=== PATIENT | male | born 1975 | race Caucasian/White ===

== ENCOUNTER 2016-06-18 15:25 | Emergency (ER) | payer BC ==
[~2016-06-18 15:25] MED LIST: ADVIL PO; ASAB PO; BYETTA10 SC; CARDCD240 PO; CARDIZEM LA360 MG PO; CAT1 PO; COREG12 PO; COREG25 PO; COREG6 PO; DEMA100 PO; DEMA20 PO; DIOVAN HCT320 MG/25 PO; GLUCOPHAGE1000 MG PO; HALF81 PO; JANTOVEN1 MG PO; JANTOVEN7.5 MG PO; KLONO1 PO; KLONO5 PO; KLOR-CON M2020 MEQ PO; LAN125 PO; PRILOSEC40 MG PO; PRIN20 PO; REST15 PO; RYTHMOL300 MG PO; SACU1TAB4 PO; SACU1TAB7 PO; SINGULAIR1 PO; SPIRO25 PO; SPIRO50 PO; VICODINTAB PO; XARELTO20 MG PO; Z5 PO; ZESTRIL10 MG PO; ZYRTEC ALLGY10 MG PO
[2016-06-18 16:19] LABS: BASOPHILS 0.3 %; BASOPHILS ABSOLUTE 0.02 10/3/uL (0.0-0.16); EOSINOPHILS 0.8 %; EOSINOPHILS ABSOLUTE 0.05 10/3/uL (0.0-0.53); HEMATOCRIT 36.7 % (40.0-51.0); HEMOGLOBIN 12.9 g/dL (13.6-17.8); IMMATURE GRANULOCYTES 0.3 %; IMMATURE GRANULOCYTES ABSOLUTE 0.02 10/3/uL (0.0-0.11); LYMPHOCYTES 22.2 %; LYMPHOCYTES ABSOLUTE 1.32 10/3/uL (0.67-4.30); MEAN CORPUS HGB CONC 35.1 g/dL (32.0-36.0); MEAN CORPUSCULAR HEMOGLOB 30.7 pg (26.0-34.0); MEAN CORPUSCULAR VOLUME 87.4 fL (80-100); MEAN PLATELET VOLUME 10.8 fL (9.2-13.0); MONOCYTES 14.3 %; MONOCYTES ABSOLUTE 0.85 10/3/uL (0.21-1.20); NEUTROPHILS 62.1 %; NEUTROPHILS ABSOLUTE 3.69 10/3/uL (2.02-8.40); PLATELET COUNT 166 10/3/uL (150-400); RBC DISTRIBUTION WIDTH 13.8 % (12.0-16.0)
[2016-06-18 16:22] LABS: MANUAL DIFF NO %
[2016-06-18 16:29] LABS: ASCORBIC ACID (UR NOT ORDER) NEG (NEG); BILIRUBIN, URINE NEGATIVE (NEG); ER URINALYSIS TAT 0 Hrs 14 Mins; KETONE, URINE NEGATIVE (NEG); LEUKOCYTE ESTERASE(NOT OR NEG (NEG); NITRITE (URINE) NEG (NEG); WBC (NOT ORDERED) (RFLEX) 7 (0-5)
[2016-06-18 16:35] LABS: A/G RATIO 0.8 (0.7-1.9); ALBUMIN 3.4 G/DL (3.5-5.0); ALKALINE PHOSPHATASE 138 U/L (45-117); BUN (BLOOD UREA NITROGEN) 9 MG/DL (6-23); CALCIUM, SERUM 8.2 MG/DL (8.5-10.4); CHLORIDE, SERUM 105 MMOL/L (96-112); CO2 (CARBON DIOXIDE) 24 MMOL/L (24-34); CREATININE 1.01 MG/DL (0.70-1.30); GFR AFRICAN AMERICAN 107 ML/MIN (>=60); GFR NON AFRICAN AMERICAN 93 ML/MIN (>=60); GLOBULIN 4.3 G/DL (2.5-4.1); GLUCOSE, SERUM 125 MG/DL (60-99); POTASSIUM, SERUM 4.2 MMOL/L (3.5-5.3); SGPT(ALT) 98 U/L (5-65); SODIUM, SERUM 139 MMOL/L (135-148); TOTAL BILIRUBIN 0.3 MG/DL (0-1.2); TOTAL PROTEIN 7.7 G/DL (6.0-8.5)
[2016-06-18 16:36] LABS: SGOT(AST) 91 U/L (5-40)
== END 2016-06-18 20:31 | disposition home or self-care (01) ==
LOC: ER 15:25
PROVIDERS: Nurse Practitioner
DX: R80.9 Proteinuria, unspecified (principal); R19.7 Diarrhea, unspecified; R10.10 Upper abdominal pain, unspecified; R79.89 Other specified abnormal findings of blood chemistry; I10 Essential (primary) hypertension; I50.9 Heart failure, unspecified; Z88.8 Allergy status to other drugs, medicaments and biological substances; Z79.899 Other long term (current) drug therapy; Z79.82 Long term (current) use of aspirin
CPT/HCPCS: 74176; 80053; 81001; 83690; 85025; 87045; 87046; 87046-59; 87328; 87329; 87493; 87493-59; 87899; 87899-59; 89055; 96374; 96375; 96376; 99284; J2405; J2765

== ENCOUNTER 2016-08-06 23:00 | Emergency (ER) | payer BC ==
[2016-08-06 22:50] LABS: BASOPHILS 0.2 %; BASOPHILS ABSOLUTE 0.03 10/3/uL (0.0-0.16); EOSINOPHILS 0.6 %; EOSINOPHILS ABSOLUTE 0.07 10/3/uL (0.0-0.53); HEMATOCRIT 37.4 % (40.0-51.0); HEMOGLOBIN 12.6 g/dL (13.6-17.8); IMMATURE GRANULOCYTES 0.2 %; IMMATURE GRANULOCYTES ABSOLUTE 0.03 10/3/uL (0.0-0.11); LYMPHOCYTES 29.3 %; LYMPHOCYTES ABSOLUTE 3.72 10/3/uL (0.67-4.30); MEAN CORPUS HGB CONC 33.7 g/dL (32.0-36.0); MEAN CORPUSCULAR HEMOGLOB 29.9 pg (26.0-34.0); MEAN CORPUSCULAR VOLUME 88.8 fL (80-100); MEAN PLATELET VOLUME 11.1 fL (9.2-13.0); MONOCYTES 8.9 %; MONOCYTES ABSOLUTE 1.13 10/3/uL (0.21-1.20); NEUTROPHILS 60.8 %; NEUTROPHILS ABSOLUTE 7.73 10/3/uL (2.02-8.40); PLATELET COUNT 197 10/3/uL (150-400); RED CELL COUNT 4.21 10/6/uL (4.7-6.1)
[2016-08-06 22:51] LABS: MANUAL DIFF NO %; WHITE BLOOD CELLS 12.7 10/3/uL (4.5-10.5)
[2016-08-06 22:57] LABS: INTERNATIONAL NORMAL RATI 1.7 UNITS (-); PARTIAL THROMBO TIME 41.3 SEC (22.5-37.2)
[2016-08-06 22:58] LABS: PROTIME (NOT ORD) 19.7 SEC (12.0-14.5)
[2016-08-06 23:06] LABS: CALCIUM, SERUM 8.7 MG/DL (8.5-10.4); CHEST PAIN PROFILE TAT 0 Hrs 21 Mins; CHLORIDE, SERUM 102 MMOL/L (96-112); CREATININE 0.87 MG/DL (0.70-1.30); GFR AFRICAN AMERICAN 125 ML/MIN (>=60); GFR NON AFRICAN AMERICAN 108 ML/MIN (>=60); SODIUM, SERUM 136 MMOL/L (135-148); TROPONIN I <0.02 NG/ML (<0.05)
[2016-08-06 23:07] LABS: BUN (BLOOD UREA NITROGEN) 17 MG/DL (6-23); CO2 (CARBON DIOXIDE) 29 MMOL/L (24-34); GLUCOSE, SERUM 160 MG/DL (60-99)
== END 2016-08-07 02:29 | disposition home or self-care (01) ==
LOC: ER 23:00
PROVIDERS: Emergency Medicine
DX: T82.897A Other specified complication of cardiac prosthetic devices, implants and grafts, initial encounter (principal); I48.91 Unspecified atrial fibrillation; I11.0 Hypertensive heart disease with heart failure; I50.9 Heart failure, unspecified; Z88.8 Allergy status to other drugs, medicaments and biological substances; Z79.899 Other long term (current) drug therapy; Z79.82 Long term (current) use of aspirin
CPT/HCPCS: 71020; 80048; 83735; 84484; 85025; 85610; 85730; 93005; 99285

== ENCOUNTER 2016-08-21 08:22 | Inpatient (IN) | payer BC ==
--- NOTE | ~2016-08-21 | OP ---
Record Of Operation [facility] [address] [place]. [address] NAME: JESSICA MARTIN : 75 STATUS : DIS IN PAT#: [id number] AGE: 40 ADM/REG DATE : 08/21/16 MR#: [id number] REPORT SERV DATE: 08/24/16 DICTATED BY: DOUGLAS VAZQUEZ DATE: 08/23/16 REPORT STATUS : Draft TRANSCRIBED BY: MODRick DATE: 08/23/16 DATE OF PROCEDURE: 08/23/2016 PREOPERATIVE DIAGNOSIS: Left dystrophic hallux nail, possible infection. POSTOPERATIVE DIAGNOSIS: Left dystrophic hallux nail, possible infection. PROCEDURE: Left hallux nail plate avulsion (complete). ANESTHESIA: None. COMPLICATIONS: None. INDICATION FOR OPERATION: Jessica Martin is a pleasant 40-year-old male, who had a purulent discharge coming from underneath his left hallux great toenail. The nail is dystrophic and appeared to have been subjected to some type of trauma. Risks and benefits of surgical intervention were discussed at length with the patient. All of his questions were answered. He wished to proceed. Jessica's left foot was prepped and draped in the usual sterile fashion. We anesthetized, and a tourniquet was placed around the base of the left great toe. We used 10 mL of 1% lidocaine and 0.5% Marcaine to perform a toe block. Once completely anesthetized, we used surgical instruments to remove his nail plate. We used a [place] elevator to carefully remove the plate without damage to the underlying sterile matrix. The nail plate came off in its entirety. Examination revealed evidence of a prior trauma to the nail plate with a crack across the mid substance. There was some what appeared to be old hematoma. The sterile matrix appeared normal and not significantly traumatized. Bulky dressings were applied, tourniquet was removed, and the patient tolerated this procedure with minimal discomfort. The patient will follow up in my office in one week. A copy of my business card was given to the patient. All questions were answered both from the patient as well as his . Thanks for the opportunity to participate in the care of this patient. KALIE/CHAPARRO Douglas Vazquez MD / [id number] CC: Gladys Reese M.D.
--- NOTE | ~2016-08-21 | CN ---
Consultation Report [facility] [address] [place]. [address] NAME: JESSICA MARTIN : 75 STATUS : DIS IN PAT#: [id number] AGE: 40 ADM/REG DATE : 08/21/16 MR#: [id number] REPORT SERV DATE: 08/24/16 DICTATED BY: DOUGLAS VAZQUEZ DATE: 08/23/16 REPORT STATUS : Draft TRANSCRIBED BY: MODL DATE: 08/23/16 [facility]OT [facility]KLE CONSULTATION DATE OF CONSULTATION: 08/23/2016 REASON FOR CONSULTATION: Left infected hallux toenail. HISTORY OF PRESENT ILLNESS: Jessica Martin is a pleasant 40-year-old male who is in the hospital for atrial fibrillation. He mentioned to his attending physician that he had been noticing some drainage from the left hallux nail. I was consulted to evaluate. PAST MEDICAL HISTORY: Significant for atrial fibrillation, hypertension, systolic dysfunction, ventricular tachycardia, obstructive sleep apnea, factor 5 Leiden (hypercoagulable state), morbid obesity with BMI of 51, status post laminectomy per Dr. Power, insulin resistance, atypical chest pain, and degenerative joint disease. MED LIST: Aldactone, Coreg, Entresto, potassium chloride, Singulair, Tikosyn, torsemide, Xarelto, and Zyrtec. ALLERGIES: AMLODIPINE, AZITHROMYCIN, AND LORAZEPAM. SOCIAL HISTORY: Admits to chewing tobacco. He is evaluated at the bedside of a supportive . PHYSICAL EXAMINATION: VITAL SIGNS: He is afebrile with a temperature of 98.5, pulse is 95, respirations are 20. BMI is 51. GENERAL: He is alert and oriented x3. He is a morbidly obese gentleman, age-appropriate. HEENT: Head is atraumatic. Eyes, pupils are equal to light and reactive. MUSCULOSKELETAL: Cervical spine nontender with gentle range of motion. No tenderness with gentle range of motion of his bilateral upper extremities. CHEST: Nonlabored breathing. ABDOMEN: Obese. LOWER EXTREMITIES: Right lower extremity reveals no evidence of skin lesions. Left lower extremity reveals no evidence of skin lesions. There is a dystrophic left hallux nail plate. Gentle range of motion of his bilateral hips and bilateral knees are nontender. LEFT HALLUX: Left hallux nail plate appears to be possibly traumatically injured. It has a broken appearance in the mid aspect of the nail plate. There is evidence of old subungual hematoma. There is no evidence of ingrown toenail. There is negative for paronychia. No additional abnormalities are noted. No lymphatic streaking or redness involving the rest of the lesser toes or mid foot. IMAGING: X-rays none. Consultation Report [facility] [id number] [id number] NAME: JESSICA MARTIN : 75 STATUS : DIS IN PAT#: [id number] AGE: 40 ADM/REG DATE : 08/21/16 MR#: [id number] REPORT SERV DATE: 08/24/16 DICTATED BY: DOUGLAS VAZQUEZ DATE: 08/23/16 REPORT STATUS : Draft TRANSCRIBED BY: CHAPARRO DATE: 08/23/16 LAB RESULTS: Labs reveal a blood glucose of 178. Serum glucose is elevated at 134. IMPRESSION: Dystrophic left hallux nail plate. PLAN: Lengthy discussion with the patient regarding his diagnosis and treatment options. We recommended a left hallux nail plate avulsion. He agreed. Please feel free to refer to our operative note regarding this procedure. I have asked the patient to follow up with me in one week for further evaluation. We will continue to keep an eye on him. I gave him copy of my business card and asked him to call me with additional questions or concerns. Thanks for the opportunity to participate in the care of this patient. 55 minutes was spent on this consultation with respect to the chart review, developing a treatment plan, thin [id number] discussion with the patient. KALIE/CHAPARRO Douglas Vazquez MD / [id number] CC: Gladys Reese M.D.
[2016-08-21 09:14] LABS: CALCIUM, SERUM 9.1 MG/DL (8.5-10.4); CHLORIDE, SERUM 103 MMOL/L (96-112); CO2 (CARBON DIOXIDE) 26 MMOL/L (24-34); CREATININE 0.79 MG/DL (0.70-1.30); GFR AFRICAN AMERICAN 130 ML/MIN (>=60); GFR NON AFRICAN AMERICAN 112 ML/MIN (>=60); POTASSIUM, SERUM 4.7 MMOL/L (3.5-5.3); SODIUM, SERUM 139 MMOL/L (135-148)
[2016-08-21 09:16] LABS: BUN (BLOOD UREA NITROGEN) 11 MG/DL (6-23); GLUCOSE, SERUM 196 MG/DL (60-99)
[2016-08-21] MEDS ORDERED: NORCO1 TAB PO (09:20)
[2016-08-21] MEDS ORDERED: ENDOCET1 TA3 PO (09:21)
[2016-08-22 05:15] LABS: BUN (BLOOD UREA NITROGEN) 12 MG/DL (6-23); CALCIUM, SERUM 9.3 MG/DL (8.5-10.4); CHLORIDE, SERUM 102 MMOL/L (96-112); CO2 (CARBON DIOXIDE) 28 MMOL/L (24-34); CREATININE 0.75 MG/DL (0.70-1.30); GFR AFRICAN AMERICAN 133 ML/MIN (>=60); GFR NON AFRICAN AMERICAN 115 ML/MIN (>=60); GLUCOSE, SERUM 141 MG/DL (60-99); POTASSIUM, SERUM 4.3 MMOL/L (3.5-5.3); SODIUM, SERUM 136 MMOL/L (135-148)
[2016-08-23 08:40] LABS: BUN (BLOOD UREA NITROGEN) 12 MG/DL (6-23); CALCIUM, SERUM 8.9 MG/DL (8.5-10.4); CHLORIDE, SERUM 104 MMOL/L (96-112); CO2 (CARBON DIOXIDE) 28 MMOL/L (24-34); CREATININE 0.74 MG/DL (0.70-1.30); GFR AFRICAN AMERICAN 134 ML/MIN (>=60); GFR NON AFRICAN AMERICAN 115 ML/MIN (>=60); GLUCOSE, SERUM 134 MG/DL (60-99); POTASSIUM, SERUM 5.2 MMOL/L (3.5-5.3); SODIUM, SERUM 137 MMOL/L (135-148)
[2016-08-23] MEDS ORDERED: TIKOSYN500 MCG PO (19:56)
== END 2016-08-23 21:12 | disposition home or self-care (01) | DRG 309 ==
LOC: SSU1 08:22
PROVIDERS: Internal Medicine Clinical Cardiac Electrophysiology
PROC: 0HDRXZZ Extraction of Toe Nail, External Approach (ICD-10-PCS; principal; 2016-08-23)
DX: I47.2 Ventricular tachycardia (principal); I50.22 Chronic systolic (congestive) heart failure; D68.51 Activated protein C resistance; I42.9 Cardiomyopathy, unspecified; E88.81 Metabolic syndrome and other insulin resistance; Z68.43 Body mass index [BMI] 50.0-59.9, adult; I48.91 Unspecified atrial fibrillation; I10 Essential (primary) hypertension; G47.33 Obstructive sleep apnea (adult) (pediatric); E66.01 Morbid (severe) obesity due to excess calories; M94.0 Chondrocostal junction syndrome [Tietze]; M17.0 Bilateral primary osteoarthritis of knee; L03.032 Cellulitis of left toe; L60.3 Nail dystrophy; Z88.8 Allergy status to other drugs, medicaments and biological substances; Z88.1 Allergy status to other antibiotic agents
CPT/HCPCS: 80048; 82962; 83735; 93005; A9270-GY; C8929; Q9957

== ENCOUNTER 2016-09-05 09:30 | Emergency (ER) | payer BC ==
[2016-09-05 08:56] LABS: INTERNATIONAL NORMAL RATI 1.2 UNITS (-); PARTIAL THROMBO TIME 43.1 SEC (22.5-37.2)
[2016-09-05 08:58] LABS: PROTIME (NOT ORD) 15.5 SEC (12.0-14.5)
[2016-09-05 08:59] LABS: BASOPHILS 0.5 %; BASOPHILS ABSOLUTE 0.04 10/3/uL (0.0-0.16); EOSINOPHILS 0.7 %; EOSINOPHILS ABSOLUTE 0.06 10/3/uL (0.0-0.53); ER CBC TAT 0 Hrs 21 Mins; HEMATOCRIT 38.9 % (40.0-51.0); HEMOGLOBIN 13.3 g/dL (13.6-17.8); IMMATURE GRANULOCYTES 0.4 %; IMMATURE GRANULOCYTES ABSOLUTE 0.03 10/3/uL (0.0-0.11); LYMPHOCYTES 30.3 %; MANUAL DIFF NO %; MEAN CORPUS HGB CONC 34.2 g/dL (32.0-36.0); MEAN CORPUSCULAR HEMOGLOB 30.5 pg (26.0-34.0); MEAN CORPUSCULAR VOLUME 89.2 fL (80-100); MEAN PLATELET VOLUME 11.2 fL (9.2-13.0); MONOCYTES 6.9 %; MONOCYTES ABSOLUTE 0.57 10/3/uL (0.21-1.20); NEUTROPHILS 61.2 %; NEUTROPHILS ABSOLUTE 5.04 10/3/uL (2.02-8.40); PLATELET COUNT 205 10/3/uL (150-400); RBC DISTRIBUTION WIDTH 13.5 % (12.0-16.0); RED CELL COUNT 4.36 10/6/uL (4.7-6.1); WHITE BLOOD CELLS 8.2 10/3/uL (4.5-10.5)
[2016-09-05 09:09] LABS: BUN (BLOOD UREA NITROGEN) 12 MG/DL (6-23); CHLORIDE, SERUM 102 MMOL/L (96-112); CO2 (CARBON DIOXIDE) 30 MMOL/L (24-34); CREATININE 0.83 MG/DL (0.70-1.30); GFR AFRICAN AMERICAN 128 ML/MIN (>=60); GFR NON AFRICAN AMERICAN 110 ML/MIN (>=60); POTASSIUM, SERUM 4.5 MMOL/L (3.5-5.3); SODIUM, SERUM 138 MMOL/L (135-148); TROPONIN I <0.02 NG/ML (<0.05)
[2016-09-05 09:10] LABS: CALCIUM, SERUM 9.9 MG/DL (8.5-10.4); CHEST PAIN PROFILE TAT 0 Hrs 31 Mins; GLUCOSE, SERUM 190 MG/DL (60-99)
[~2016-09-05 09:30] MED LIST changes: +ENDOCET1 TA3 PO; +NORCO1 TAB PO; +TIKOSYN500 MCG PO
== END 2016-09-05 11:07 | disposition home or self-care (01) ==
LOC: ER 09:30
PROVIDERS: Physician Assistant
DX: T82.199A Other mechanical complication of unspecified cardiac device, initial encounter (principal); I47.1 Supraventricular tachycardia; G47.30 Sleep apnea, unspecified; I10 Essential (primary) hypertension; I48.91 Unspecified atrial fibrillation; E11.9 Type 2 diabetes mellitus without complications; Z88.8 Allergy status to other drugs, medicaments and biological substances; Z79.899 Other long term (current) drug therapy; Z79.82 Long term (current) use of aspirin
CPT/HCPCS: 71010; 80048; 83735; 83880; 84484; 85025; 85610; 85730; 93005; 99285